=== PATIENT | female | born 1945 | race African-American/Black ===

== ENCOUNTER 2017-09-18 10:10 | Emergency (ER) | payer MEDICARE, BC ==
[~2017-09-18] VITALS: Ht 157.5 cm; Wt 62.0 kg
[2017-09-18] MEDS ORDERED: LISINOPRIL 20 MG TABLET ONE (10:45)
[2017-09-18] MEDS ORDERED: LISINOPRIL 20 MG TABLET PO ONE (11:00)
[2017-09-18 11:02] LABS: BASOPHILS # (AUTO) 0.02 x10^3/uL (0-0.1); BASOPHILS % (AUTO) 0 % (0-1); EOSINOPHILS # (AUTO) 0.12 x10^3/uL (0-0.4); EOSINOPHILS % (AUTO) 1 % (1-7); LYMPHOCYTES # (AUTO) 1.77 x10^3/uL (1-3.4); LYMPHOCYTES % (AUTO) 20 % (22-44); MD NO; MEAN CORPUSCULAR HEMOGLOBIN 27.5 pg (27.0-34.8); MEAN CORPUSCULAR HGB CONC 32.2 g/dL (32.4-35.8); MEAN CORPUSCULAR VOLUME 85.2 fL (80-100); MEAN PLATELET VOLUME 8.4 fL (7.4-10.4); MONOCYTES # (AUTO) 0.74 x10^3/uL (0.2-0.8); MONOCYTES % (AUTO) 8 % (2-9); NEUTROPHILS # (AUTO) 6.23 x10^3/uL (1.8-6.8); NEUTROPHILS % (AUTO) 70 % (42-75); PLATELET COUNT 325 x10^3/uL (130-400); RED BLOOD COUNT 5.47 x10^6/uL (3.82-5.3); RED CELL DISTRIBUTION WIDTH 13.9 % (9.6-15.2)
[2017-09-18] MEDS ORDERED: LISI-170 PO (11:06)
[2017-09-18 11:10] LABS: ALBUMIN 3.5 g/dL (3.4-5.0); ANION GAP 4 mmol/L (5-15); CALCIUM 8.6 mg/dL (8.5-10.1); CHLORIDE 109 mmol/L (98-107); CREATININE 0.81 mg/dL (0.55-1.02)
[2017-09-18 13:03] VITALS: BP 158/96
== END 2017-09-18 13:06 | disposition home or self-care (01) ==
LOC: ED 12:44
DX: I10 Essential (primary) hypertension (principal); R05 Cough; Z87.891 Personal history of nicotine dependence
CPT/HCPCS: 36415; 71045; 80048; 82040; 85025; 93005; 99285